=== PATIENT | female | born 1940 | race Caucasian/White ===

== ENCOUNTER 2018-12-23 17:57 | Inpatient (IN) | payer MEDICARE ==
[~2018-12-23] VITALS: Ht 170.2 cm; Wt 51.7 kg
[2018-12-23] MEDS ORDERED: MAGNESIUM HYDROXIDE 30 ML LIQUID UDC PO PRN (20:00)
[2018-12-23] MEDS ORDERED: TEMAZEPAM 7.5 MG CAPSULE PO PRN (20:00)
[2018-12-23] MEDS ORDERED: BLOOD SUGAR DIAGNOSTIC 1 EACH STRIP VI ONE (20:00)
[2018-12-23] MEDS ORDERED: ACETAMINOPHEN 325 MG TABLET PO PRN (20:00)
[2018-12-23] MEDS ORDERED: MAG HYDROX/AL HYDROX/SIMETH 30 ML LIQUID UDC PO PRN (20:00)
[2018-12-23] MEDS: LORAZEPAM 0.5 MG TABLET PO PRN (21:01)
[2018-12-23 22:25] VITALS: BP 110/62
[2018-12-24 07:24] LABS: BASOPHILS % (AUTO) 0.5 % (0.0-2.0); EOSINOPHILS # (AUTO) 0.1 K/uL (0.0-0.7); EOSINOPHILS % (AUTO) 3.1 % (0.0-7.0); HEMATOCRIT 39.9 % (31.2-41.9); HEMOGLOBIN 13.3 g/dL (10.9-14.3); LYMPHOCYTES # (AUTO) 1.6 K/uL (20.0-40.0); LYMPHOCYTES % (AUTO) 37.7 % (20.5-51.5); MEAN CORPUSCULAR HEMOGLOBIN 30.1 uug (24.7-32.8); MEAN CORPUSCULAR HGB CONC 33 g/dL (32.3-35.6); MEAN CORPUSCULAR VOLUME 90.6 fL (75.5-95.3); MONOCYTES # (AUTO) 0.5 K/uL (2.0-10.0); MONOCYTES % (AUTO) 10.7 % (0.0-11.0); NEUTROPHILS # (AUTO) 2.1 K/uL (1.8-8.9); PLATELET COUNT (AUTO) 189 K/uL (179-408); WHITE BLOOD COUNT (AUTO) 4.3 K/uL (3.8-11.8)
[2018-12-24 07:30] VITALS: BP 114/54
[2018-12-24 08:07] LABS: ALANINE AMINOTRANSFERASE 21 U/L (14-59); ALKALINE PHOSPHATASE 103 U/L (50-136); ASPARTATE AMINOTRANSFERASE 14 U/L (15-37); BILIRUBIN,TOTAL 0.3 mg/dL (0.2-1.0); CARBON DIOXIDE 26 mmol/L (21-32); CHLORIDE 106 mmol/L (98-107); CREATININE 0.9 mg/dL (0.6-1.3); GLUCOSE 95 mg/dL (74-106); POTASSIUM 4.8 mmol/L (3.5-5.1); TOTAL PROTEIN, SERUM 7.2 g/dL (6.4-8.2); UREA NITROGEN, BLOOD 26 mg/dL (7-18)
[2018-12-24] MEDS: ESCITALOPRAM OXALATE 10 MG TABLET PO SCH (09:00)
[2018-12-24 14:36] LABS: *BILIRUBIN,URIN NEGATIVE (NEGATIVE); *BLOOD, URINE NEGATIVE (NEGATIVE); *COLOR,URINE YELLOW (YELLOW); *KETONES,URINE NEGATIVE (NEGATIVE); *UROBILINOGEN,URINE 0.2 E.U./dl (NORMAL); LEUKOCYTE ESTERASE ,URINE 1+ (NEGATIVE); NITRITE, URINE NEGATIVE (NEGATIVE); PH,URINE 5.5 (5.0-8.0); UGLUCOSE NEGATIVE (NEGATIVE)
[2018-12-24 14:43] LABS: *CLARITY,URINE HAZY (CLEAR)
[2018-12-24 14:46] LABS: RBC,URINE 0-3 /HPF (0-3)
[2018-12-24 14:48] LABS: BACTERIA,URINE FEW /HPF (NONE SEEN); MUCUS,URINE FEW /LPF (0-FEW); SQUAMOUS EPITHELIAL CELL,UR MODERATE /HPF (NONE SEEN)
[2018-12-24 15:44] VITALS: BP 100/48
[2018-12-24] MEDS: CEphaleXIN 500 MG CAPSULE PO SCH (17:10)
[2018-12-24 19:48] VITALS: BP 105/56
[2018-12-24] MEDS: QUETIAPINE FUMARATE 25 MG TABLET PO SCH (20:37)
[2018-12-25 07:54] VITALS: BP 107/57
[2018-12-25] MEDS: CEphaleXIN 500 MG CAPSULE PO SCH ×2 (08:45→16:14)
[2018-12-25] MEDS: ESCITALOPRAM OXALATE 10 MG TABLET PO SCH (08:45)
[2018-12-25 15:14] VITALS: BP 123/64
[2018-12-25] MEDS: LORAZEPAM 0.5 MG TABLET PO PRN (16:14)
[2018-12-25 20:32] VITALS: BP 115/60
[2018-12-25] MEDS: QUETIAPINE FUMARATE 25 MG TABLET PO SCH (20:46)
[2018-12-26 07:55] VITALS: BP 103/52
[2018-12-26] MEDS: CEphaleXIN 500 MG CAPSULE PO SCH ×2 (08:48→16:28)
[2018-12-26] MEDS: ESCITALOPRAM OXALATE 10 MG TABLET PO SCH (08:48)
[2018-12-26] MEDS: LORAZEPAM 0.5 MG TABLET PO PRN (14:22)
[2018-12-26 17:05] VITALS: BP 101/55
[2018-12-26 20:00] VITALS: BP 97/41
[2018-12-26] MEDS: QUETIAPINE FUMARATE 25 MG TABLET PO SCH (21:00)
[2018-12-26 23:38] VITALS: BP 97/41
[2018-12-27 07:30] VITALS: BP 107/45
[2018-12-27] MEDS: ESCITALOPRAM OXALATE 10 MG TABLET PO SCH (08:18)
[2018-12-27] MEDS: CEphaleXIN 500 MG CAPSULE PO SCH ×2 (08:18→16:37)
[2018-12-27 15:29] VITALS: BP 96/49
[2018-12-27] MEDS: LORAZEPAM 0.5 MG TABLET PO PRN (16:37)
[2018-12-27] MEDS: QUETIAPINE FUMARATE 25 MG TABLET PO SCH (20:04)
[2018-12-27 20:16] VITALS: BP 116/51
[2018-12-28 07:30] VITALS: BP 105/47
[2018-12-28] MEDS: CEphaleXIN 500 MG CAPSULE PO SCH ×2 (08:31→17:31)
[2018-12-28] MEDS: ESCITALOPRAM OXALATE 10 MG TABLET PO SCH (08:31)
[2018-12-28] MEDS: LORAZEPAM 0.5 MG TABLET PO PRN (13:43)
[2018-12-28 15:27] VITALS: BP 114/64
[2018-12-28] MEDS: QUETIAPINE FUMARATE 25 MG TABLET PO SCH (20:11)
[2018-12-28 20:16] VITALS: BP 112/47
[2018-12-29 07:30] VITALS: BP 111/53
[2018-12-29 07:56] LABS: THYROID STIMULATING HORMONE 1.664 mIU/mL (0.358-3.740)
[2018-12-29] MEDS: CEphaleXIN 500 MG CAPSULE PO SCH ×2 (08:51→16:07)
[2018-12-29] MEDS: ESCITALOPRAM OXALATE 10 MG TABLET PO SCH (08:52)
[2018-12-29 15:42] VITALS: BP 99/45
[2018-12-29 19:59] VITALS: BP 120/47
[2018-12-29] MEDS: QUETIAPINE FUMARATE 25 MG TABLET PO SCH (20:07)
[2018-12-30 08:06] VITALS: BP 104/70
[2018-12-30] MEDS: ESCITALOPRAM OXALATE 10 MG TABLET PO SCH (09:00)
[2018-12-30] MEDS: CEphaleXIN 500 MG CAPSULE PO SCH (09:01)
[2018-12-30 16:26] VITALS: BP 102/46
[2018-12-30 20:58] VITALS: BP 101/50
[2018-12-30] MEDS: QUETIAPINE FUMARATE 25 MG TABLET PO SCH (21:15)
[2018-12-31 07:30] VITALS: BP 109/49
[2018-12-31] MEDS: ESCITALOPRAM OXALATE 10 MG TABLET PO SCH (08:29)
[2018-12-31 17:09] VITALS: BP 101/41
[2018-12-31] MEDS: QUETIAPINE FUMARATE 25 MG TABLET PO SCH (20:21)
[2018-12-31 20:41] VITALS: BP 107/43
[2019-01-01 07:30] VITALS: BP 106/44
[2019-01-01] MEDS: ESCITALOPRAM OXALATE 10 MG TABLET PO SCH (08:35)
[2019-01-01 15:37] VITALS: BP 102/50
[2019-01-01 20:00] VITALS: BP 99/40
[2019-01-01] MEDS: QUETIAPINE FUMARATE 25 MG TABLET PO SCH (20:12)
[2019-01-01] MEDS: DONEPEZIL 5 MG TABLET PO SCH (20:12)
[2019-01-02 07:30] VITALS: BP 101/60
[2019-01-02] MEDS: ESCITALOPRAM OXALATE 10 MG TABLET PO SCH (08:16)
[2019-01-02] MEDS: LORAZEPAM 0.5 MG TABLET PO PRN (13:43)
[2019-01-02 15:10] VITALS: BP 142/79
[2019-01-02] MEDS: DONEPEZIL 5 MG TABLET PO SCH (20:04)
[2019-01-02 20:19] VITALS: BP 117/51
[2019-01-02] MEDS ORDERED: QUETIAPINE FUMARATE 25 MG TABLET PO SCH (21:00)
[2019-01-03 07:30] VITALS: BP 105/50
== END 2019-01-03 15:30 | DRG 885 ==
LOC: ER 18:01 → GPS 19:12
PROVIDERS: ADMIT Psychiatry & Neurology Psychiatry; ATTEND Nurse Practitioner Acute Care
DX: F39 Unspecified mood [affective] disorder (principal); G93.41 Metabolic encephalopathy; F02.81 Dementia in other diseases classified elsewhere, unspecified severity, with behavioral disturbance; G30.9 Alzheimer's disease, unspecified; Z91.83 Wandering in diseases classified elsewhere; R79.89 Other specified abnormal findings of blood chemistry; G31.9 Degenerative disease of nervous system, unspecified; E53.8 Deficiency of other specified B group vitamins; Z79.899 Other long term (current) drug therapy; I67.2 Cerebral atherosclerosis
CPT/HCPCS: 36415; 70450; 84443; 85025; 87086; 93005; A4663; J7030